=== PATIENT | female | born 1950 | race Caucasian/White ===

== ENCOUNTER 2016-12-03 07:36 | Inpatient (IN) | payer OTHER, MEDICAID ==
[~2016-12-03] VITALS: Ht 154.9 cm; Wt 94.3 kg
[~2016-12-03 07:36] MED LIST: CLINDAMYCIN PHOSPHATE 900 mg/50mL D5W IV ONE; LR 1,000 ML IV.SOLN IV ONE; METOCLOPRAMIDE HCL 10 MG/2 ML VIAL IVP ONE; MIDAZOLAM HCL 5 MG/5 ML VIAL IVP ONE; MORPHINE SULFATE 10MG/10ML PF AMP EP ONE; NORMAL SALINE 10 ML VIAL IVP ONE; PROPOFOL 200MG/ 20ML VIAL (DIPRIVAN) IV ONE; ROPIVACAINE HCL/PF 5 MG/ML 0.5% 30 ML VIAL INJ ONE; SEVOFLURANE 15 MIN GAS INH ONE; TRANEXAMIC ACID 1,000 MG/10 ML VIAL IV ONE; VANCOMYCIN HCL 1000 MG/VIAL IV ONE; fentaNYL CITRATE/PF 100 MCG/2 ML AMP IVP ONE
[2016-12-03] MEDS ORDERED: LISI-600 PO (08:50)
[2016-12-03] MEDS ORDERED: ASPI-1063 PO (08:50)
[2016-12-03] MEDS ORDERED: LOVA20TA2 PO (08:50)
[2016-12-03] MEDS ORDERED: PRO20 PO (08:50)
[2016-12-03] MEDS ORDERED: FURO-150 PO (08:50)
[2016-12-03] MEDS ORDERED: GLU850 PO (08:50)
[2016-12-03] MEDS ORDERED: D5/0.45 NS 1,000 ML IV ONE (09:12)
[2016-12-03] MEDS ORDERED: ACETAMINOPHEN 325 MG TABLET PO PRN (09:15)
[2016-12-03] MEDS ORDERED: BISACODYL 10 MG/SUPPOSITORY RC PRN (09:15)
[2016-12-03] MEDS ORDERED: POLYMYXIN 500,000/BACIT.10,000 UNITS in NS IRR 1 L IR ONE (09:19)
[2016-12-03 14:00] VITALS: BP_SYST 126
[2016-12-03 14:50] VITALS: BP_SYST 135
[2016-12-03] MEDS: HYDROcodone/ACETAMIN 7.5-325 MG TAB PO PRN ×2 (14:59→20:57)
[2016-12-03 16:00] VITALS: BP_SYST 135
[2016-12-03 19:10] VITALS: BP_SYST 135
[2016-12-03 20:52] VITALS: BP_SYST 124
[2016-12-04] VITALS: BP_SYST 112
[2016-12-04] MEDS: HYDROcodone/ACETAMIN 7.5-325 MG TAB PO PRN ×5 (01:21→20:54)
[2016-12-04 04:00] VITALS: BP_SYST 120
[2016-12-04 08:09] VITALS: BP_SYST 140
[2016-12-04] MEDS: RIVAROXABAN 10 MG TABLET PO SCH (08:47)
[2016-12-04] MEDS ORDERED: DEXTROSE 50% JECT 50 ML DISP.SYRIN IVP PRN (10:30)
[2016-12-04 11:02] LABS: BASOPHILS % (AUTO) 0.2 % (0.0-2.0); EOSINOPHILS % (AUTO) 0.2 % (0.0-4.0); HEMOGLOBIN 11.1 g/dL (12.0-16.0); LYMPHOCYTES # (AUTO) 2.2 K/uL (1.0-5.5); LYMPHOCYTES % (AUTO) 15.8 % (20.5-51.5); MEAN CORPUSCULAR HEMOGLOBIN 29 pg (27-31); MEAN CORPUSCULAR HGB CONC 34 % (32-36); MEAN CORPUSCULAR VOLUME 87 fL (79.0-98.0); MONOCYTES # (AUTO) 0.8 K/uL (0.0-1.0); MONOCYTES % (AUTO) 5.8 % (1.7-9.3); PLATELET COUNT (AUTO) 349 K/uL (130-430); RED BLOOD CELL COUNT(AUTO) 3.78 MIL/uL (4.2-6.2); RED CELL DISTRIBUTION WIDTH 13.1 % (9.0-15.0)
[2016-12-04 11:03] LABS: CREATININE 1.05 mg/dL (0.55-1.30); POTASSIUM 3.8 mmol/L (3.5-5.1)
[2016-12-04 11:08] LABS: ALBUMIN 2.9 g/dL (3.4-4.8); TOTAL BILIRUBIN 0.5 mg/dL (0.0-1.0)
[2016-12-04] MEDS ORDERED: ONDANSETRON HCL 4 MG/2 ML VIAL IVP ONE (12:15)
[2016-12-04] MEDS ORDERED: HYDROcodone/ACETAMIN 7.5-325 MG TAB PO ONE (12:15)
[2016-12-04 12:25] VITALS: BP_SYST 141
[2016-12-04] MEDS: INSULIN REGULAR, HUMAN 100 UNITS/ML, 10 ML VIAL (novoLIN R) SUBCUT PRN (12:39)
[2016-12-04 16:42] VITALS: BP_SYST 136
[2016-12-04] MEDS: MORPHINE SULFATE 10 MG/ML VIAL IM PRN (17:29)
[2016-12-04] MEDS ORDERED: SIMVASTATIN 10 MG TABLET PO SCH (18:00)
[2016-12-04 20:15] VITALS: BP_SYST 141
[2016-12-05 01:00] VITALS: BP_SYST 134
[2016-12-05] MEDS: HYDROcodone/ACETAMIN 7.5-325 MG TAB PO PRN ×3 (01:23→12:09)
[2016-12-05 03:17] VITALS: BP_SYST 151
[2016-12-05] MEDS ORDERED: FUROSEMIDE 20 MG TABLET PO SCH (09:00)
[2016-12-05] MEDS ORDERED: LISINOPRIL 20 MG TABLET PO SCH (09:00)
[2016-12-05] MEDS ORDERED: FLUoxetine HCL 20 MG CAPSULE (PROzac) PO SCH (09:00)
[2016-12-05 09:20] VITALS: BP_SYST 129
[2016-12-05] MEDS: RIVAROXABAN 10 MG TABLET PO SCH (09:32)
[2016-12-05] MEDS: MORPHINE SULFATE 10 MG/ML VIAL IM PRN (09:57)
[2016-12-05] MEDS: INSULIN REGULAR, HUMAN 100 UNITS/ML, 10 ML VIAL (novoLIN R) SUBCUT PRN (11:33)
[2016-12-05 12:38] VITALS: BP_SYST 129
[2016-12-05 14:37] VITALS: BP_SYST 129
== END 2016-12-05 15:15 | DRG 470 ==
LOC: SMU 07:36
PROVIDERS: ADMIT Orthopaedic Surgery; ATTEND Orthopaedic Surgery
PROC: 0SRD0J9 Replacement of Left Knee Joint with Synthetic Substitute, Cemented, Open Approach (ICD-10-PCS; principal; 2016-12-03 09:30)
DX: M17.12 Unilateral primary osteoarthritis, left knee (principal); S72.42 Fracture of lateral condyle of femur; E11.9 Type 2 diabetes mellitus without complications; M25.561 Pain in right knee; M81.0 Age-related osteoporosis without current pathological fracture; G89.29 Other chronic pain; I10 Essential (primary) hypertension; Z83.3 Family history of diabetes mellitus; Z85.3 Personal history of malignant neoplasm of breast; Z88.0 Allergy status to penicillin; Z88.5 Allergy status to narcotic agent
CPT/HCPCS: 36415; 80053; 82550-TC; 82962; 84484; 85025; 87081; 88305; 88311; 93005; 97039; 97110-GP; 97116-GP; 97530-GP; C1713; C1776; J2250; J2270; J2274; J2405; J2704; J2765; J3010; J3370; J3490; J7120

== ENCOUNTER 2017-01-11 20:31 | Emergency (ER) | payer OTHER, MEDICAID ==
[~2017-01-11] VITALS: Ht 154.9 cm; Wt 93.0 kg
[~2017-01-11 20:31] MED LIST changes: +ASPI-1063 PO; -CLINDAMYCIN PHOSPHATE 900 mg/50mL D5W IV ONE; +FURO-150 PO; +GLU850 PO; +LISI-600 PO; +LOVA20TA2 PO; -LR 1,000 ML IV.SOLN IV ONE; -METOCLOPRAMIDE HCL 10 MG/2 ML VIAL IVP ONE; -MIDAZOLAM HCL 5 MG/5 ML VIAL IVP ONE; -MORPHINE SULFATE 10MG/10ML PF AMP EP ONE; -NORMAL SALINE 10 ML VIAL IVP ONE; +PRO20 PO; -PROPOFOL 200MG/ 20ML VIAL (DIPRIVAN) IV ONE; -ROPIVACAINE HCL/PF 5 MG/ML 0.5% 30 ML VIAL INJ ONE; -SEVOFLURANE 15 MIN GAS INH ONE; -TRANEXAMIC ACID 1,000 MG/10 ML VIAL IV ONE; -VANCOMYCIN HCL 1000 MG/VIAL IV ONE; -fentaNYL CITRATE/PF 100 MCG/2 ML AMP IVP ONE
[2017-01-11 20:53] VITALS: BP_SYST 148
[2017-01-11] MEDS ORDERED: SULFAMETHOXAZOLE/TRIMETHOPR DS 1 TABLET PO ONE (21:45)
[2017-01-11] MEDS ORDERED: cefTRIAXone 1 GM VIAL IM ONE (21:45)
[2017-01-11 22:00] VITALS: BP_SYST 144
== END 2017-01-11 22:00 | disposition home or self-care (01) ==
LOC: SED 20:31
DX: G89.18 Other acute postprocedural pain (principal); E11.9 Type 2 diabetes mellitus without complications; K21.9 Gastro-esophageal reflux disease without esophagitis; I10 Essential (primary) hypertension; Z90.49 Acquired absence of other specified parts of digestive tract; Z85.3 Personal history of malignant neoplasm of breast; Z88.0 Allergy status to penicillin; Z88.5 Allergy status to narcotic agent; Z96.652 Presence of left artificial knee joint
CPT/HCPCS: 96372; 99283; J0696